=== PATIENT | male | born 1975 | race African-American/Black ===

== ENCOUNTER 2021-07-23 10:05 | Emergency (ER) | payer SELFPAY ==
[2021-07-23] MEDS ORDERED: Ondansetron PF 4 MG/2 ML Vial ONE (10:33)
[2021-07-23] MEDS ORDERED: Morphine 4 MG/ML VIAL ONE (10:33)
[2021-07-23] MEDS ORDERED: Sodium Chloride 0.9% 1,000 ML ONE (10:33)
[2021-07-23 10:55] LABS: Hemoglobin 18.6 g/dL (14.0-18.0); Mean Corpuscular HGB CONC 33.6 g/dL (32.0-36.0); Mean Corpuscular Hemoglobin 32.3 pg (27.0-31.0); Mean Corpuscular Volume 96.1 fL (78.0-98.0); Mean Platelet Volume 9.2 fL (7.4-10.4); Platelet Count 240 thou/uL (130-400); RBC Distribution Width 11.5 % (11.5-14.5); Red Blood Cell (RBC) Count 5.76 mill/uL (4.70-6.10)
[2021-07-23 11:00] LABS: ALT (SGPT) 40 U/L (8-55); AST (SGOT) 34 U/L (5-34); Albumin 4.4 g/dL (3.5-5.0); Alkaline Phosphatase 50 U/L (40-110); Anion Gap 14 mmol/L (10-20); BUN (Urea Nitrogen) 26 mg/dL (8.9-20.6); Bilirubin, Total 0.8 mg/dL (0.2-1.2); Calc. Creatinine Clearance 0 mL/min (70-130); Calcium 9.1 mg/dL (7.8-10.44); Carbon Dioxide 21 mmol/L (22-29); Chloride 105 mmol/L (98-107); Glucose 94 mg/dL (70-105); Lipase 27 U/L (8-78); Potassium 4.3 mmol/L (3.5-5.1); Protein, Total 8.4 g/dL (6.0-8.3); Sodium 136 mmol/L (136-145)
[2021-07-23 11:18] LABS: Lymphocytes 25 % (21-51); MDiff Complete? YES; Monocytes 6 % (0-10); Neutrophil 58 % (42-75); Platelet Morphology Comment Appears Adequate; RBC Morphology Normal; Reactive Lymphocytes 9 % (0-10)
[2021-07-23 11:32] LABS: Bilirubin Negative (Negative); Blood, Urine Trace (Negative); Clarity Clear (Clear); Glucose, Urine (Dipstick) Negative (Negative); Ketone, Urine Negative (Negative); Leukocyte Negative (Negative); Nitrite Negative (Negative); Protein, Urine (Dipstick) 100 mg/dL (Neg-Trace); Urobilinogen 0.2 mg/dL (Less than 2); pH, Urine 5.5 (5.0-9.0)
[2021-07-23 11:35] LABS: Specific Gravity, Urine 1.038 (1.002-1.036)
[2021-07-23 11:37] LABS: RBC/HPF None Seen HPF (0-3); Squamous Epithelial 0-3 HPF (0-3); WBC/HPF 0-3 HPF (0-3)
[2021-07-23 11:38] LABS: Bacteria/HPF Rare-Few HPF (None Seen)
== END 2021-07-23 11:55 | disposition home or self-care (01) ==
LOC: NAV ERS 10:05
DX: R11.2 Nausea with vomiting, unspecified (principal); R19.7 Diarrhea, unspecified
CPT/HCPCS: 80053; 81003; 81015; 83690; 85025; 94760; 96374; 96375; J2270; J2405; J7050

== ENCOUNTER 2023-05-26 10:27 | Emergency (ER) | payer OTHER, SELFPAY | END 2023-05-26 10:50 | disposition home or self-care (01) | LOC: NAV ERS 10:27 | DX: H65.01 Acute serous otitis media, right ear (principal); H73.91 Unspecified disorder of tympanic membrane, right ear; J30.9 Allergic rhinitis, unspecified | CPT/HCPCS: 99282 ==